=== PATIENT | female | born 2000 | race Caucasian/White ===

== ENCOUNTER → 2021-12-04 14:54 | Outpatient (CLI) | payer OTHER, MEDICAID, SELFPAY ==
[2021-12-07 08:12] LABS: Candida species Negative (Negative); Gardnerella vaginalis Negative (Negative); Trichomoas vaginalis Negative (Negative)
== END ==
PROVIDERS: PCP Physician Assistant; Visit Provider Physician Assistant
DX: R10.2 Pelvic and perineal pain (principal); Z12.4 Encounter for screening for malignant neoplasm of cervix
CPT/HCPCS: 87480; 87510; 87660

== ENCOUNTER → 2022-04-02 14:25 | Outpatient (CLI) | payer OTHER, MEDICAID, SELFPAY ==
[2022-04-05 06:18] LABS: Candida species Negative (Negative); Gardnerella vaginalis Positive (Negative); Trichomoas vaginalis Negative (Negative)
== END ==
PROVIDERS: PCP Physician Assistant; Referring Provider Physician Assistant; Visit Provider Physician Assistant
DX: N89.8 Other specified noninflammatory disorders of vagina (principal)
CPT/HCPCS: 87480; 87510; 87660

== ENCOUNTER → 2022-04-25 13:16 | Outpatient (CLI) | payer OTHER, MEDICAID, SELFPAY | PROVIDERS: PCP Physician Assistant; Visit Provider Family Medicine | DX: N89.8 Other specified noninflammatory disorders of vagina (principal); R30.0 Dysuria; Z3A.15 15 weeks gestation of pregnancy | CPT/HCPCS: 87591; 87661; 87798; 87491; 87801; 81002 ==

== ENCOUNTER → 2022-06-03 08:49 | Outpatient (CLI) | payer OTHER, MEDICAID, SELFPAY | PROVIDERS: PCP Physician Assistant; Visit Provider Physician Assistant | DX: R31.9 Hematuria, unspecified (principal); B37.3 Candidiasis of vulva and vagina | CPT/HCPCS: 81002; 87086; 87798; 87801 ==

== ENCOUNTER → 2024-06-22 16:20 | Outpatient (CLI) | payer OTHER, MEDICAID, SELFPAY ==
[2024-06-26 13:38] LABS: Atopobium vaginae Low - 0 Score (.); Bact Vaginosis-Assoc. bacteria Low - 0 Score (.); Candida albicans, NAA Negative (Negative); Candida glabrata Negative (Negative); Chlamydia trachomatis Negative (Negative); Megasphaera 1 Low - 0 Score (.); Neisseria gonorrhoeae Negative (Negative); Trichomoas vaginalis by NAA Negative (Negative)
== END ==
PROVIDERS: PCP Physician Assistant; Visit Provider Physician Assistant
DX: N76.0 Acute vaginitis (principal)
CPT/HCPCS: 81025; 87480; 87491; 87510; 87591; 87798; 87801